=== PATIENT | male | born 1965 | race Caucasian/White ===

== ENCOUNTER → 2016-07-09 | Emergency (ER) | payer SELFPAY | END | disposition home or self-care (01) | LOC: OHEAST 15:02 → UCEAST 15:02 | DX: Z02.1 Encounter for pre-employment examination (principal) ==

== ENCOUNTER 2016-08-28 11:17 | Emergency (ER) | payer BC ==
[2016-08-28 11:25] VITALS: BP 134/99
--- NOTE | 2016-08-28 12:58 | ED ---
Throat Pain/Nasal Congestion - HPI Summary HPI Summary: Patient arrived to the ED while at work with CC of right eye pain after sustaining an injury from his back brace clip. He states his eye has been red and watery with moderate amount of pain since the injury Visual acuity OK. He has sustained an eye injury in the past to the left eye and states this feels similar. 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 Denies other injuries. - History of Current Complaint Chief Complaint: EDEyeProblem Time Seen by Provider: 08/28/16 11:26 Hx Obtained From: Patient Onset/Duration: Sudden Onset Severity: Moderate Associated Signs And Symptoms: Positive: FB Sensation - Epiglottits Risk Factors Epiglottis Risk Factors: Negative - Allergies/Home Medications Allergies/Adverse Reactions: Allergies Allergy/AdvReac Type Severity Reaction Status Date / Time No Known Allergies Allergy Verified 08/28/16 11:20 PMH/Surg Hx/FS Hx/Imm Hx Previously Healthy: Yes Infectious Disease History: No Infectious Disease History: Denies: Traveled Outside the in Last 30 Days - Social History Occupation: Employed Full-time Lives: With Family Hx Substance Use: No Substance Use Type: Reports: None Hx Tobacco Use: No Smoking Status (MU): Never Smoked Tobacco Review of Systems Constitutional: Negative Positive: Drainage - watery, Erythema Cardiovascular: Negative Respiratory: Negative Musculoskeletal: Negative Skin: Negative Neurological: Negative Psychological: Normal All Other Systems Reviewed And Are Negative: Yes Physical Exam Triage Information Reviewed: Yes Vital Signs On Initial Exam: Initial Vitals Temp Pulse Resp BP Pulse Ox 96.6 F 89 16 134/99 99 08/28/16 11:21 08/28/16 11:21 08/28/16 11:21 08/28/16 11:21 08/28/16 11:21 Vital Signs Reviewed: Yes Appearance: Positive: Well-Appearing, Well-Nourished Skin: Positive: Warm, Skin Color Reflects Adequate Perfusion Eyes: Positive: EOMI, ROSA, Conjunctiva Inflammed - watery with injection of right eye Neck: Positive: Supple, No Lymphadenopathy Respiratory/Lung Sounds: Positive: Clear to Auscultation, Breath Sounds Present Cardiovascular: Positive: Normal, RRR Musculoskeletal: Positive: Normal, Strength/ROM Intact Neurological: Positive: Normal, Sensory/Motor Intact Psychiatric: Positive: Normal AVPU Assessment: Alert Diagnostics - Vital Signs Vital Signs Temp Pulse Resp BP Pulse Ox 08/28/16 11:21 96.6 F 89 16 134/99 99 - Laboratory Lab Statement: Any lab studies that have been ordered have been reviewed, and results considered in the medical decision making process. EENT Course/Dx - Course Course Of Treatment: Fluoroscein stain with tetracaine applied to eye. Arevalo lamp used. Corneal abrasion over 1/3 of right eye visualized. Topical antibiotics prescribed. Patient tolerated procedure well and OK with discharge. - Differential Diagnoses Differential Diagnoses: Abrasion, Corneal Abrasion, Keratitis - Diagnoses Provider Diagnoses: Corneal abrasion Discharge - Discharge Plan Condition: Stable Disposition: HOME Prescriptions: Polymyx/Trimethoprim OPTH* [Polytrim OPHTH*] 1 drop RIGHT EYE QID #1 btl Patient Education Materials: Corneal Abrasion (ED) Referrals: Non Staff,Doctor [Primary Care Provider] - Additional Instructions: 1 drop 4 times daily for 5 days. Follow up with ophthalmology. If symptoms worsen or fail to improve, return to ED immediately.
== END 2016-08-28 11:47 | disposition home or self-care (01) ==
LOC: ED 11:17
DX: S05.01XA Injury of conjunctiva and corneal abrasion without foreign body, right eye, initial encounter (principal); H57.11 Ocular pain, right eye; X58.XXXA Exposure to other specified factors, initial encounter; Y93.89 Activity, other specified; Y92.9 Unspecified place or not applicable
CPT/HCPCS: 99281